=== PATIENT | male | born 1980 | race African-American/Black ===

== ENCOUNTER 2024-04-14 11:02 | Outpatient (CLI) | payer OTHER, SELFPAY ==
--- NOTE | ~2024-04-14 | XR_ITS ---
1 Hand Technique: PA, oblique, and lateral views were obtained. Clinical History: Fracture Findings: There are subacute fracture of the distal second metacarpal neck with prominent surrounding callus formation and probable early bony bridging. No other fracture or dislocation seen.. Joint spa shaina are preserved. Soft tissues are unremarkable. Impression: Probable subacute healing fracture of the distal second metacarpal neck, as detailed above. Reviewed, dictated and finalized at location . Impression: Probable subacute healing fracture of the distal second metacarpal neck, as det zonia above.
== END 2024-04-14 11:03 | disposition home or self-care (01) ==
PROVIDERS: PCP Plastic Surgery; Visit Provider Plastic Surgery
DX: S62.309A Unspecified fracture of unspecified metacarpal bone, initial encounter for closed fracture (principal); X58.XXXA Exposure to other specified factors, initial encounter
CPT/HCPCS: 73130